=== PATIENT | female | born 1950 | race Caucasian/White ===

== ENCOUNTER → 2020-10-24 | Outpatient (CLI) | payer MEDICARE, OTHER ==
[~2020-10-24] MED LIST: CALCIUM 500+D1 EAC2 PO; DICLOFENAC SOD50 MG PO; RECLAST 55 MG/100 M IV; SIMVASTATIN40 MG PO; SYNTHROID50 MCG PO
== END ==
LOC: M.LAB 09:21
PROVIDERS: ATTEND Physician Assistant
DX: Z01.812 Encounter for preprocedural laboratory examination (principal); Z20.822 Contact with and (suspected) exposure to COVID-19; M75.121 Complete rotator cuff tear or rupture of right shoulder, not specified as traumatic; M19.011 Primary osteoarthritis, right shoulder